=== PATIENT | female | born 1970 | race Two or more races ===

== ENCOUNTER 2021-02-10 07:29 | Emergency (ER) | payer OTHER ==
[2021-02-10 07:45] VITALS: BMI 32.3
[2021-02-10] MEDS ORDERED: LACTATED RINGERS SOLUTION 1000 ML INFUS.BAG IV ONE (08:27)
[2021-02-10 08:40] LABS: HEMATOCRIT 39.6 % (32.4-45.2); MCH 28.1 pg (25.7-33.7); MCHC 32.9 g/dl (32.0-36.0); MEAN CELL VOLUME 85.5 fl (80-96); MEAN PLT VOLUME 9.1 fl (7.5-11.1); PLATELET COUNT 194 10^3/uL (134-434); RBC 4.64 M/mm3 (3.60-5.2); RDW 13.9 % (11.6-15.6); WHITE BLOOD COUNT 4.1 K/mm3 (4.0-10.0)
[2021-02-10 08:47] LABS: INR 1.02 (0.83-1.09); PROTHROMBIN TIME (PATIENT) 12.3 SEC (9.7-13.0)
[2021-02-10 08:50] LABS: ACTIVATED PTT 26.7 SECONDS (25.2-36.5)
[2021-02-10 08:56] LABS: CHLORIDE 109 mmol/L (98-107); SODIUM 140 mmol/L (136-145)
[2021-02-10 08:58] LABS: CALCIUM 8.3 mg/dL (8.5-10.1)
[2021-02-10 08:59] LABS: ALBUMIN 3.4 g/dl (3.4-5.0); ANION GAP 5 MMOL/L (8-16); BLOOD UREA NITROGEN 15.6 mg/dL (7-18); CO2 26 mmol/L (21-32); GLUCOSE,RANDOM 122 mg/dL (74-106)
[2021-02-10 09:02] LABS: CREATININE 0.7 mg/dL (0.55-1.3); SGOT/AST 27 U/L (15-37); SGPT/ALT 37 U/L (13-61)
[2021-02-10 09:04] LABS: BILIRUBIN,TOTAL 0.4 mg/dL (0.2-1)
[2021-02-10 09:05] LABS: ALK PHOS 120 U/L (45-117)
[2021-02-10] MEDS ORDERED: ACETAMINOPHEN 325 MG TABLET (FP) PO ONE (10:12)
[2021-02-10] MEDS ORDERED: ACETAMINOPHEN 325 MG TABLET (FP) ONE (11:31)
[2021-02-10 11:40] VITALS: BP 135/74; PULSE 75; TEMP 97.4
== END 2021-02-10 11:40 | disposition home or self-care (01) ==
LOC: JER 07:29
DX: R07.9 Chest pain, unspecified (principal)
CPT/HCPCS: 36415; 71045-TC-FY; 71275-TC; 80053; 84484; 85027; 85379; 85610; 85730; 93005; 93010; 99285-25; Q9967

== ENCOUNTER 2021-09-11 08:57 | Emergency (ER) | payer OTHER ==
[2021-09-11 09:10] VITALS: TEMP 98; BMI 31.9
[2021-09-11] MEDS ORDERED: KETOROLAC TROMETHAMINE 60 MG/2 ML VIAL IM ONE (10:50)
[2021-09-11] MEDS ORDERED: KETOROLAC TROMETHAMINE 60 MG/2 ML VIAL ONE (10:52)
[2021-09-11] MEDS ORDERED: KETAMINE HCL 500 MG/10 ML VIAL IV ONE ×2 (12:04→13:35)
[2021-09-11] MEDS ORDERED: KETAMINE HCL 500 MG/10 ML VIAL ONE (12:10)
[2021-09-11] MEDS ORDERED: ONDANSETRON *ODT* 4 MG TABLET ONE (15:20)
[2021-09-11] MEDS ORDERED: ONDANSETRON *ODT* 4 MG TABLET SL ONE (15:27)
[2021-09-11 16:35] VITALS: BP 130/65; PULSE 95
== END 2021-09-11 15:30 | disposition home or self-care (01) ==
LOC: JERFT 08:57 → JER 08:57
PROC: 2W39X1Z Immobilization of Left Upper Extremity using Splint (ICD-10-PCS; principal; 2021-09-11)
PROC: 3E0233Z Introduction of Anti-inflammatory into Muscle, Percutaneous Approach (ICD-10-PCS; 2021-09-11)
PROC: 3E033GC Introduction of Other Therapeutic Substance into Peripheral Vein, Percutaneous Approach (ICD-10-PCS; 2021-09-11)
DX: S53.105A Unspecified dislocation of left ulnohumeral joint, initial encounter (principal); S52.125A Nondisplaced fracture of head of left radius, initial encounter for closed fracture; W01.0XXA Fall on same level from slipping, tripping and stumbling without subsequent striking against object, initial encounter
CPT/HCPCS: 73070-TC-LT-FY; 73090-TC-LT-FY; 99285-25; Q0162